=== PATIENT | female | born 1995 | race Caucasian/White ===

== ENCOUNTER 2023-06-22 13:27 | Outpatient (CLI) | payer BC, OTHER, SELFPAY ==
[2023-06-22 14:28] LABS: Beta HCG Quantitative 53.22 mIU/ML
== END 2023-06-22 13:28 | disposition home or self-care (01) ==
PROVIDERS: PCP Obstetrics & Gynecology; Visit Provider Obstetrics & Gynecology
DX: N91.2 Amenorrhea, unspecified (principal)
CPT/HCPCS: 36415; 84702

== ENCOUNTER 2023-06-24 11:27 | Outpatient (CLI) | payer BC, OTHER, SELFPAY ==
[2023-06-24 12:49] LABS: Beta HCG Quantitative 145.85 mIU/ML
== END 2023-06-24 11:28 | disposition home or self-care (01) ==
PROVIDERS: PCP Obstetrics & Gynecology; Visit Provider Obstetrics & Gynecology
DX: N91.2 Amenorrhea, unspecified (principal)
CPT/HCPCS: 36415; 84702

== ENCOUNTER → 2023-07-02 12:50 | Outpatient (CLI) | payer OTHER, SELFPAY ==
--- NOTE | ~2023-07-02 | US_ITS ---
EXAMINATION: US OB <=14 wk fetus w TV DATE: 07/02/2023 13:33 INDICATION: Left lower quadrant abdominal pain during first trimester TECHNIQUE: Real-time pelvic ultrasound utilizing both a transvaginal and transabdominal probe was pe rformed. The interpreting radiologist was not present for the study. COMPARISON: None. FINDINGS: The uterus measures 8.7 x 4.5 x 6.1 cm. There is an intrauterine gestational sac with double decidua sign but no yolk sac or pole yet apparent. The mean sac diameter measures 8 mm, still too smal l for assessment for gestational age. 3 mm nabothian cyst at the cervix. The right ovary measures 3.5 x 2.1 x 2.4 cm. With 1.2 cm anechoic cyst/follicle. The left ovary measu res 3.7 x 1.9 x 2.0 cm. There is no free fluid in the pelvis. IMPRESSION: 1. Single intrauterine gestational sac with mean sac diameter of 8 mm which is too small for assessme nt for gestational age. Reviewed, dictated and finalized at location B. IMPRESSION: 1. Single intrauterine gestational sac with mean sac diameter of 8 mm which is too small for assessment for gestational age.
== END ==
PROVIDERS: PCP Obstetrics & Gynecology; Visit Provider Obstetrics & Gynecology
DX: O26.899 Other specified pregnancy related conditions, unspecified trimester (principal); R10.32 Left lower quadrant pain; Z3A.00 Weeks of gestation of pregnancy not specified
CPT/HCPCS: 76801; 76817

== ENCOUNTER 2023-07-15 15:27 | Outpatient (CLI) | payer OTHER, SELFPAY ==
--- NOTE | ~2023-07-15 | US_ITS ---
US renal BI 07/15/2023 16:04 Procedure: Realtime transabdominal ultrasound of the kidneys and bladder. Indication: Back pain.. Comparison: No prior studies for comparison. Findings: Renal echotexture is normal bilaterally without hydronephrosis, contour deforming mass or r enal calculus. The right kidney measures 11.6 cm and left kidney measures 11.3 cm. Bladder within no rmal limits, although not well distended. In the adjacent liver parenchyma there is an oval hypoechoi c mass with internal vascularity measuring 1.4 cm. Impression: 1: Unremarkable renal ultrasound. No stones, masses or hydronephrosis. 2: Oval 1.4 cm liver mass with internal vascularity, most likely benign. Recommend follow-up ultraso und in 3-6 months to assess stability. Reviewed, dictated and finalized at [facility]. Impression: 1: Unremarkable renal ultrasound. No stones, masses or hydronephrosis. 2: Oval 1.4 cm liver mass with internal vascularity, most likely benign. Recom mend follow-up ultrasound in 3-6 months to assess stability.
== END 2023-07-15 15:28 | disposition home or self-care (01) ==
PROVIDERS: Visit Provider Obstetrics & Gynecology
DX: M54.9 Dorsalgia, unspecified (principal); K76.89 Other specified diseases of liver
CPT/HCPCS: 76775

== ENCOUNTER 2024-02-21 13:25 | Outpatient (CLI) | payer OTHER, SELFPAY ==
[2024-02-21 13:53] LABS: Basophils Percent Auto 0.3 % (0.2-1.2); Eosinophils Absolute Auto 0.1 K/mm3 (0-0.3); Eosinophils Percent Auto 0.7 % (0-4.4); Hemoglobin 12.6 g/dL (12.0-15.0); Immature Granulocyte Absolute 0.11 K/mm3 (0.00-0.031); Immature Granulocyte Percent A 0.9 % (0-0.5); Lymphocytes Absolute Auto 1.96 K/mm3 (0.9-3.2); Lymphocytes Percent Auto 16.9 % (18.3-44.2); Mean Corpuscular HGB Conc 33.2 g/dl (32-36); Mean Corpuscular Hemoglobin 29.5 pg (26-34); Mean Platelet Volume 10.8 fl (7.4-10.4); Monocytes Absolute Auto 0.5 K/mm3 (0.1-0.6); Monocytes Percent Auto 4.6 % (2.6-8.5); Neutrophils Absolute Auto 8.9 K/mm3 (1.3-6.7); Neutrophils Percent Auto 76.6 % (45.5-73.1); Platelet Count Result 269 k/mm3 (150-375); Red Blood Count 4.27 M/mm3 (4.2-5.4); Red Cell Distribution Width 14.4 % (11.5-14.5); White Blood Count 11.6 K/mm3 (4.5-10.0)
[2024-02-21 15:32] LABS: Rapid Plasma Reagin Non-Reactive (NonReactive)
== END 2024-02-21 15:00 | disposition home or self-care (01) ==
LOC: ANHOBOP 13:31 → ANHLDR 13:35
PROVIDERS: Visit Provider Obstetrics & Gynecology
DX: Z01.818 Encounter for other preprocedural examination (principal)
CPT/HCPCS: 36415; 85025; 86592; 86850; 86900; 86901; 99199

== ENCOUNTER 2024-02-22 08:37 | Inpatient (IN) | payer OTHER, SELFPAY ==
--- NOTE | 2024-02-21 14:23 | PM.IMHP ---
H&P: HPI History of Present Illness Date/Time: 02/21/24 14:23 28-year-old 1 female presents for primary delivery due to breech presentation. Does also have a history of pelvic floor dysfunction for which she has seen physical therapy and had good results, and had originally opted for primary delivery regardless of presentation, now the baby is breech will need for that reason as well. records are on the chart and no significant issues or concerns throughout the . Chief Complaint: Review of Systems Review of Systems: All systems reviewed & are unremarkable except as noted in HPI and below PMFSH Past Medical History Medical History Anemia Diarrhea Family history of autoimmune disorder Rectal urgency Surgical History Surgical History [place] teeth removed Family History Family History Mother Rheumatoid arthritis Breast cancer, Onset Age: 50 Grandparent Carcinoma of colon maternal grandmother Diabetes mellitus maternal grandmother Social History Social History Smoking status: Never smoker Alcohol intake: former Drinks per week: 1 Substance use: never Substance use type: marijuana Last use: 12/2022 Lack of Transportation: No Lack of Food: Sometimes True Current Housing: I Have Housing Concerned About Future Housing: No Difficulty Paying Gas/Electric Bills: No Difficulty Paying for Meds: No Currently Unemployed: No Education: Bachelor's Degree Difficulty w/ Childcare or Family Care: No Living arrangements: other Additional living arrangements comments: Occupation/Education: occupation 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 Gender identity (if verbalized by the patient): Female Sexual Orientation (if Verbalized by the Patient): Straight or Heterosexual Spiritual care concerns: No Meds Home Medications and Allergies Home Medications Medication Instructions Recorded Confirmed Type vitamins no.106-iron 27.5 1 cap PO DAILY 07/22/23 02/21/24 History mg-folate no.6 1 mg-dha capsule aspirin 81 mg tablet,delayed 81 mg PO DAILY 12/27/23 02/21/24 History release (Adult Low Dose Aspirin) Allergies Allergy/AdvReac Type Severity Reaction Status Date / Time Sulfa (Sulfonamide Allergy Mild Rash Verified 02/21/24 13:58 Antibiotics) Penicillins Allergy Hives Verified 02/21/24 13:58 Exam Const: General: cooperative, healthy appearing and comfortable Resp: Effort & Inspection: normal respiratory effort Auscultation: clear to auscultation bilaterally Cardio: Rate: regular rate Rhythm: regular rhythm GI: Inspection: normal to inspection Auscultation: normal bowel sounds : Bimanual exam- vagina & uterus: enlarged ( 39cm. heart tone 140. Breech presentation) Assessment and Plan Assessment and plan (1) 39 weeks gestation of : Code(s): Z3A.39 - 39 weeks gestation of Status: Acute (2) Breech presentation: Code(s): O32.1XX0 - Maternal care for breech presentation, not applicable or unspecified Status: Acute Plan proceed with primary delivery
[2024-02-22] VITALS (37 sets, daily range): BP systolic 92–123; BP diastolic 41–94; PULSE 59–88; RESP 15–24; TEMP 36.2–37.9; O2SAT 95–100; BMI 25.7
[2024-02-22] MEDS: ACETAMINOPHEN 500 MG TABLET 1000 MG PO (08:56)
[2024-02-22] MEDS: LACTATED RINGERS 1,000 ML 125 ML IV CONT ×2 (09:00→09:51)
--- NOTE | 2024-02-22 09:26 | LDADM ---
This patient, Yaneli Pal, was admitted to Labor/Delivery/Recovery 119 on 02/22/24 at 08:37. Plans for labor, pain management and were discussed with patient. Patient/family oriented to hospital policies and general routines including ID bracelet, bed and alarms, visiting hours, pain management, procedures, bathroom and other care routines, personal items, smoking policy, room service/diet and guest tray routines, infant security routines, and visiting hours. Patient/Family are encouraged to report perceived risks to care and to ask questions if they do not understand what they are told or what they should do. See OBIX for further documentation.
[2024-02-22] MEDS: FAMOTIDINE 20 MG/2 ML VIAL IV PUSH (09:51)
[2024-02-22] MEDS: ONDANSETRON INJ 4 MG/2 ML VIAL IV PUSH ×2 (09:51→11:25)
--- NOTE | 2024-02-22 10:06 | WPDANESEPP ---
Anes - Eval Pre Procedure Procedure: Operation Date: 02/22/24 10:30 Proposed Procedures p Section - Brenden Douglas MD Date/Time: 02/22/24 10:06 Pre Op Diagnosis: Pelvic Floor Dysfunction/PreAdmit Patient Data Age: 28 Gender: F Height: 1.65 m Weight: 70 kg Last Vital Signs Temp 36.9 C 02/22/24 08:56 Pulse 77 02/22/24 10:00 BP 123/83 02/22/24 10:00 O2 Del Method Room Air 02/22/24 09:24 Allergies Allergy/AdvReac Type Severity Reaction Status Date / Time Sulfa (Sulfonamide Allergy Mild Rash Verified 02/21/24 13:58 Antibiotics) Penicillins Allergy Hives Verified 02/21/24 13:58 Home Medications Medication Instructions Recorded Confirmed Type vitamins no.106-iron 27.5 1 cap PO DAILY 07/22/23 02/21/24 History mg-folate no.6 1 mg-dha capsule aspirin 81 mg tablet,delayed 81 mg PO DAILY 12/27/23 02/21/24 History release (Adult Low Dose Aspirin) Laboratory Tests 02/22/24 09:00 HIV 1&2 Ab/P24 Ag 4thGn Pending Patient hx anesthesia problems: none Family hx anesthesia problems: none Results Review: All pre-operative results and documents have been reviewed as part of the pre-operative evaluation. [facility] Past Medical History Medical History Anemia Diarrhea Family history of autoimmune disorder Rectal urgency Surgical History Surgical History [place] teeth removed Family History Family History Mother Rheumatoid arthritis Breast cancer, Onset Age: 50 Grandparent Carcinoma of colon maternal grandmother Diabetes mellitus maternal grandmother Social History Social History Smoking status: Never smoker Alcohol intake: former Drinks per week: 1 Substance use: never Substance use type: marijuana Last use: 12/2022 Do You Feel Safe in your Home?: Yes Lack of Transportation: No Lack of Food: Never True Current Housing: I Have Housing Concerned About Future Housing: No Difficulty Paying Gas/Electric Bills: No Difficulty Paying for Meds: No Currently Unemployed: No Education: Don't Know Difficulty w/ Childcare or Family Care: No Living arrangements: other Additional living arrangements comments: Occupation/Education: occupation 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
[2024-02-22 10:26] LABS: HIV 1/2 Ab P24 Ag Result Negative (Negative)
--- NOTE | 2024-02-22 10:29 | WPDHPUPDATE1 ---
History and Physical Update Update Date/Time: 02/22/24 10:29 History and Physical has been reviewed, including an updated exam of the patient. There are NO changes in the patient's condition. Risks, benefits, and alternatives have been discussed and questions answered. Patient agrees to proceed with procedure.
--- NOTE | 2024-02-22 10:36 | WPDANESEPPF ---
Anes - Initial Pre Proc Eval Procedure: Operation Date: 02/22/24 10:30 Proposed Procedures p Section - Brenden Douglas MD Date/Time: 02/22/24 10:36 Surgeon: Brenden Douglas MD Pre Op Diagnosis: Pelvic Floor Dysfunction/PreAdmit Patient Data Age: 28 Gender: F Height: 1.65 m Weight: 70 kg Last Vital Signs Temp 36.9 C 02/22/24 08:56 Pulse 86 02/22/24 10:30 BP 113/77 02/22/24 10:30 O2 Del Method Room Air 02/22/24 09:24 Allergies Allergy/AdvReac Type Severity Reaction Status Date / Time Sulfa (Sulfonamide Allergy Mild Rash Verified 02/21/24 13:58 Antibiotics) Penicillins Allergy Hives Verified 02/21/24 13:58 Home Medications Medication Instructions Recorded Confirmed Type vitamins no.106-iron 27.5 1 cap PO DAILY 07/22/23 02/21/24 History mg-folate no.6 1 mg-dha capsule aspirin 81 mg tablet,delayed 81 mg PO DAILY 12/27/23 02/21/24 History release (Adult Low Dose Aspirin) Laboratory Tests 02/22/24 09:00 HIV 1&2 Ab/P24 Ag 4thGn Negative (Negative) Patient hx anesthesia problems: none Family hx anesthesia problems: none Results Review: All pre-operative results and documents have been reviewed as part of the pre-operative evaluation. [facility] Past Medical History Medical History Anemia Diarrhea Family history of autoimmune disorder Rectal urgency Surgical History Surgical History [place] teeth removed Family History Family History Mother Rheumatoid arthritis Breast cancer, Onset Age: 50 Grandparent Carcinoma of colon maternal grandmother Diabetes mellitus maternal grandmother Social History Social History Smoking status: Never smoker Alcohol intake: former Drinks per week: 1 Substance use: never Substance use type: marijuana Last use: 12/2022 Do You Feel Safe in your Home?: Yes Lack of Transportation: No Lack of Food: Never True Current Housing: I Have Housing Concerned About Future Housing: No Difficulty Paying Gas/Electric Bills: No Difficulty Paying for Meds: No Currently Unemployed: No Education: Don't Know Difficulty w/ Childcare or Family Care: No Living arrangements: other Additional living arrangements comments: Occupation/Education: occupation 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 Gender identity (if verbalized by the patient): Female Sexual Orientation (if Verbalized by the Patient): Straight or Heterosexual Spiritual care concerns: No Anes - Eval Final PreProcedure Day of Procedure 02/22/24 10:36 Patient weight: normal Heart: regular rate and rhythm Lungs: clear to auscultation Airway: Mallampati scale class II Neurological: alert and oriented Last oral intake: >/= 8 hours ASA classification: II Emergent: no Anesthetic plan: proceed Anesthesia type and monitoring: regional spinal and standard monitoring Results Review: All pre-operative results and documents have been reviewed as part of the pre-operative evaluation. Informed Consent: The patient's anesthetic plan and its attendant risks and benefits were discussed with the patient/family/POA. Questions were solicited and answers provided to the satisfaction of the patient/family/POA.
[2024-02-22] MEDS: ceFAZolin 2 GM/D5W 50 ML 2 GM/50 ML BAG IVPB (10:38)
[2024-02-22] MEDS: KETOROLAC 30 MG/ML VIAL (*BKC) IV PUSH (11:25)
--- NOTE | 2024-02-22 11:31 | P.PCNOB_ITS ---
OB - Delivery Note Procedure Delivery date: 02/22/24 Pre-op diagnosis: Breech Presentation Post-op Diagnosis: Same Procedure Performed: Primary Primary branch: low cervical, transverse Surgeon: Brenden Douglas MD Anesthesia type: Spinal Description of Procedure/Findings: Patient prepped draped in usual manner for this procedure. Pfannenstiel incision was made which was then carried to the fascia and extended the length of the skin incision. Superiorly and inferiorly then was dissected away from the rectus muscles and the peritoneum was readily entered. Bladder flap was developed and uterus was scored with clear fluid noted. Lower segment was extended bilaterally. Breech was then delivered without difficulty up to the shoulders, both arms delivered without difficulty and the head as well. Suction nasal oropharynx, cord was clamped and cut, baby was passed off the operative field. Placenta was then expressed with membranes and clots removed as well. Uterine incision approximated using 0 Monocryl in a running interlocking manner with good approximation and hemostasis noted. Uterus was well contracted at this point and returned to the abdomen. Fascia was approximated using 0 Vicryl from left angle midline in from the right angle to midline with good approximation noted. Subcutaneous tissue approximated using 0 plain suture and love were then used to approximate the skin edges. Patient was then sent to recovery room in stable condition. Estimated Blood Loss: 970 Drains: Yes (Jarrell) Packing: No Pathology: None sent Complications: No immediate complications Condition: Stable Disposition: PACU [place] Baby Weeks of gestation at delivery: 39 Infant gender: Female Weight (pounds): 7 Weight (ounces): 8 presentation: breech Placenta delivery description: Expressed Cord Vessel Description: 3 Vessels score one minute: 8 score five minutes: 8 AMG Delivery Billing Delivery Delivery: Delivery Charge
[2024-02-22] MEDS: MORPHINE SULFATE INJ (*CRX) 10 MG/ML AMP 3 MG IV PUSH ×2 (13:00→13:48)
[2024-02-22] MEDS: OXYTOCIN 30 UNITS/NS 500 ML 30 UNITS/500 ML BAG 125 UNITS IV CONT (13:01)
--- NOTE | 2024-02-22 13:52 | OBPPTRN ---
Patient transferred to post room #290 via stretcher. Support person present. Oriented to unit, room, information board, rooming in, admission packet and security measures. Patient verbalizes understanding.
[2024-02-22] MEDS: ACETAMINOPHEN 325 MG TABLET 650 MG PO ×2 (14:51→20:44)
--- NOTE | 2024-02-22 15:58 | PC.NURSE ---
[id number] Introductions were made, then consulted with patient to assess needs related to . Mother led the conversation with her?plans to feed?her infant and the?experience so far. Encouraged understanding of the benefits of skin to skin (demonstrating unwrapping and placing upright on her chest), stimulating with massage touch, changing positions to encourage wakefulness, how to watch for early feeding cues, responsive feeding, feeding on demand (aiming for 8-12 times in 24 hours, about every 2-3 hours), milk production, hand expression, building/maintaining a milk supply, duration of feeding, signs of adequate intake/output and how to record on the feeding sheet. Mother works well with her infant with encouragement and education. Mother is able to express dripping colostrum from each breast. She finger feeds colostrum to her infant to encourage . is just at 4 hours old. Discussed typical behavior the first 24 hours, how to protect her milk supply with hand expression, and give drops of colostrum to her infant. Mother is able to express copious drops of first milk. Infant is sleepy and reluctant not showing signs of attempting to latch at this time. Reviewed baby-led latching with mother in a laid-back position with [id number] and demonstrated how to encourage . has had two voids since and mother states breastfed immediately and well after . [id number] 1555 Purposefully rounded to assess for feeding cues. Rare feeding cues are visualized with stimulation from massage touch, position and diaper change. Reviewed positioning and ear, shoulder, hip alignment, supporting the breast to facilitate a deep latch, asymmetrical latch (off-center), leading with the chin with a big, open, wide gape and body close to mother. We practiced mother led latching with cradle and cross cradle. is sleepy and makes no effort to breastfeed at this time. Reviewed comfort measures of healing with a warm, wet washcloth to rinse breast, then leave open to air-dry, good handwashing when or touching the breast/nipples to prevent infection. Mother voiced understanding of skin to skin, stimulating with massage touch, responsive feedings, hand expressed colostrum, talking to infant to encourage if it has been 2 -2.5 hours since the start of the last , to call if does not latch, or if there is discomfort with . We reviewed typical behavior less than 6 hours old and protecting the milk supply. If mother desires to supplement infant we can express milk onto a spoon, in a cup and another option is to syringe feed infant colostrum since she has a good first supply. Resources used for education were facilitated with the visual educational handouts/ tool/mom and baby guide. Inpatient/outpatient resources provided with name written on the communication board. Parents voiced understanding of information, demonstrated learning, RN LC will round tomorrow to assess and patient was encouraged to call for assistance as needed.
[2024-02-22] MEDS: SIMETHICONE 80 MG TAB.CHEW PO (17:34)
[2024-02-22] MEDS: DOCUSATE SODIUM 100 MG CAPSULE PO (17:34)
[2024-02-22] MEDS: DEXTROSE 5%/0.45% SOD CHL 1,000 ML 125 ML IV CONT (17:34)
[2024-02-22] MEDS: KETOROLAC 15 MG/ML VIAL (*BKC) IV PUSH (17:34)
--- NOTE | 2024-02-22 18:23 | PC.NURSE ---
1822: RN could not find temporary patient in the [facility] to waste Morphine from recovery. RN called pharmacy to ask how to waste the Morphine, Andre in pharmacy was not sure how. RN wasted 0.3 mg of Morphine due to two doses being given from the same vial, verified by RN. Raymond Sheriff.
[2024-02-23] MEDS: KETOROLAC 15 MG/ML VIAL (*BKC) IV PUSH ×2 (00:42→07:51)
[2024-02-23] MEDS: HYDROcodone/acetaminophen (*CRX) 5-325 MG TABLET 1 TAB PO ×3 (04:56→20:18)
[2024-02-23 05:11] LABS: Basophils Absolute Auto 0.1 K/mm3 (0.0-0.1); Basophils Percent Auto 0.3 % (0.2-1.2); Eosinophils Absolute Auto 0.2 K/mm3 (0-0.3); Eosinophils Percent Auto 1.3 % (0-4.4); Hematocrit 31.4 % (37.0-47.0); Hemoglobin 10.1 g/dL (12.0-15.0); Immature Granulocyte Percent A 0.7 % (0-0.5); Lymphocytes Absolute Auto 2.58 K/mm3 (0.9-3.2); Mean Corpuscular HGB Conc 32.2 g/dl (32-36); Mean Corpuscular Hemoglobin 29.4 pg (26-34); Mean Corpuscular Volume 91.5 fl (80-100); Monocytes Percent Auto 6.7 % (2.6-8.5); Neutrophils Absolute Auto 10.5 K/mm3 (1.3-6.7); Platelet Count Result 215 k/mm3 (150-375); Red Blood Count 3.43 M/mm3 (4.2-5.4); Red Cell Distribution Width 14.2 % (11.5-14.5); White Blood Count 14.3 K/mm3 (4.5-10.0)
[2024-02-23 05:55] VITALS: BP 94/62; PULSE 80; RESP 18; TEMP 37.1; O2SAT 96
[2024-02-23 07:36] VITALS: BP 98/54; PULSE 79; RESP 16; TEMP 36; O2SAT 99
--- NOTE | 2024-02-23 07:37 | WPDANLDPN2 ---
Anes-Prog Note L&D Date/Time: 02/23/24 07:37 Comfortable throughout: section Neuraxial method: spinal Epidural/Spinal procedure site: clean & non-tender Neuro status: Neuro function grossly intact. Cardiovascular status: normal Respiratory status: normal Airway patency: baseline Mental status: baseline Post-Op hydration status: normal Vital Signs: Last Vital Signs Temp 37.1 C 02/23/24 05:55 Pulse 80 02/23/24 05:55 Resp 18 02/23/24 05:55 BP 94/62 L 02/23/24 05:55 Pulse Ox 96 02/23/24 05:55 O2 Del Method Room Air 02/22/24 19:30 Pain score (VAS): 4/10 I/O: Intake & Output 02/22/24 02/22/24 02/23/24 15:59 23:59 07:59 Intake Total 1091.7 700 300 Output Total 6712 504 9279 Balance -353.3 250 -1450 Post-procedural complaints: pruritis moderate, treatment effective Patient feedback: Patient satisfied with anesthetic care.
--- NOTE | 2024-02-23 07:38 | WPDANLDNPN2 ---
Anes-Prog Note L&D-Neuraxial Date/Time: 02/23/24 07:38 Neuraxial medications: intrathecal PF morphine Opiod-related complaints: pruritis moderate, treatment effective Patient feedback: Patient satisfied with post-operative pain management.
[2024-02-23] MEDS: ACETAMINOPHEN 325 MG TABLET 650 MG PO (07:49)
[2024-02-23] MEDS: MULTIVIT/MIN/PREN/FOL AC/IRON TABLET 1 TAB PO (07:51)
[2024-02-23] MEDS: LORATADINE 10 MG TABLET PO (07:52)
[2024-02-23] MEDS: DOCUSATE SODIUM 100 MG CAPSULE PO ×2 (07:52→20:18)
--- NOTE | 2024-02-23 09:40 | PC.NURSE ---
On 02/23/24, the student, Candace Peñaloza, provided care and completed [facility] documentation on this patient. I have reviewed the student's documentation and agree with the findings.
--- NOTE | 2024-02-23 10:36 | PM.OBPNVD ---
OB - PN: Subj Subjective Date/time seen: 02/23/24 10:36 S: Pain well controlled diet and ambulation without difficulty. Voiding without issue. O: VSS afebrile Abdomen: Positive bowel sounds soft nondistended. Incision covered. Labs: Reviewed A: Postoperative day 1... Good progress from a surgical and obstetrical standpoint. P: Continue routine increase in postoperative care. Will schedule for discharge home tomorrow with staple removal next Wednesday in the office. If she were baby needs to stay will hold discharge until able to be discharged with baby. OB - PN: Obj Data Labs 02/23/24 04:50 Labs: Laboratory Results - last 24 hr 02/23/24 04:50 WBC 14.3 H RBC 3.43 L Hgb 10.1 L Hct 31.4 L MCV 91.5 MCH 29.4 MCHC 32.2 RDW 14.2 Plt Count 215 MPV 11.0 H Immature Gran % (Auto) 0.7 H Neut % (Auto) 73.0 Lymph % (Auto) 18.0 L [place] % (Auto) 6.7 Eos % (Auto) 1.3 Baso % (Auto) 0.3 Lymph # (Auto) 2.58 [place] # (Auto) 1.0 H Eos # (Auto) 0.2 Baso # (Auto) 0.1 Abs Immat Gran (auto) 0.10 H Absolute Neuts (auto) 10.5 H Absolute Nucleated RBC 0.000 Nucleated RBC % 0.0 OB - PN A/P Time Spent With Patient Time: Total time spent is greater than 50% in coordination of care (as documented) at patient's floor/unit and/or counseling patient:
--- NOTE | 2024-02-23 10:38 | P.DS_ITS ---
DS: Admitting Diagnosis Discharge Date 02/24/2024 Admitting Diagnosis DS: Discharge Diagnosis Discharge Diagnosis (1) , delivered: Code(s): O80 - Encounter for full-term uncomplicated delivery Status: Acute OB - DS: Summary OB Procedures : None OB Procedures Intrapartum: OB Procedures: : None Peripartum Data Procedures: Procedures Operation Date: 02/22/24 10:30 Actual Procedure Side Surgeon p Section Not Applicable Brenden Douglas MD Time Spent with Patient Time attestation: Total time spent providing and/or coordinating discharge services: DS: Data Data Completed and Pending Labs on day of discharge: Labs from last 24 hours 02/23/24 04:50 WBC 14.3 H RBC 3.43 L Hgb 10.1 L Hct 31.4 L MCV 91.5 MCH 29.4 MCHC 32.2 RDW 14.2 Plt Count 215 MPV 11.0 H Immature Gran % (Auto) 0.7 H Neut % (Auto) 73.0 Lymph % (Auto) 18.0 L [place] % (Auto) 6.7 Eos % (Auto) 1.3 Baso % (Auto) 0.3 Lymph # (Auto) 2.58 [place] # (Auto) 1.0 H Eos # (Auto) 0.2 Baso # (Auto) 0.1 Abs Immat Gran (auto) 0.10 H Absolute Neuts (auto) 10.5 H Absolute Nucleated RBC 0.000 Nucleated RBC % 0.0 Discharge Plan Discharge Discharging Clinician: Brenden Douglas Patient Disposition: Home, Self-Care Activity: may shower, no straining, no driving and pelvic rest Diet: as tolerated Patient Instructions: Antibiotic Form Stand Alone Forms: General Discharge Information Follow-up/Referrals: Brenden Douglas MD [Physician] - 3 Weeks Discharge Medications: New hydrocodone-acetaminophen 5-325 mg Tablet 1 tablet PO Q3H Qty: 20 0RF ibuprofen 600 mg Tablet 600 mg PO Q6H Qty: 30 0RF Continued PNV no.386-bjle-jonzzb no6-dha 27.5 mg iron- 1 mg capsule 1 cap PO DAILY Discontinued aspirin [Adult Low Dose Aspirin] 81 mg tablet,delayed release (DR/EC) 81 mg PO DAILY Date of admission: 02/22/24 08:37 Primary Care Provider: UNKNOWN,DOCTOR Admitting Provider: Brenden Douglas Attending physician on admission: Brenden Douglas Condition: Stable
[2024-02-23] MEDS: SIMETHICONE 80 MG TAB.CHEW PO ×3 (12:59→20:18)
[2024-02-23] MEDS: IBUPROFEN 600 MG TABLET PO (20:18)
[2024-02-23 20:20] VITALS: BP 100/62; PULSE 77; RESP 16; TEMP 37; O2SAT 98
[2024-02-24] MEDS: HYDROcodone/acetaminophen (*CRX) 10-325 MG TABLET 1 TAB PO ×2 (01:24→07:00)
[2024-02-24] MEDS: IBUPROFEN 600 MG TABLET PO ×3 (07:00→21:40)
[2024-02-24 07:20] VITALS: BP 113/74; PULSE 64; RESP 16; TEMP 36.8; O2SAT 97
[2024-02-24] MEDS: MULTIVIT/MIN/PREN/FOL AC/IRON TABLET 1 TAB PO (08:43)
[2024-02-24] MEDS: LORATADINE 10 MG TABLET PO (08:43)
[2024-02-24] MEDS: DOCUSATE SODIUM 100 MG CAPSULE PO ×2 (08:43→17:34)
--- NOTE | 2024-02-24 09:19 | PC.NURSE ---
[id number] Purposefully rounded to assess for pumping needs as it has been reported to RN that mother is pumping and bottle feeding only. Upon entering the room mother has infants body facing her body in a unconventional position. Mother states she is without pain. Mother shared she is supplementing with bottles as well. Father shared that infant drank the whole bottle. Discussed protecting the milk supply with stimulating with or pumping. Mother denied pain with pumping, states she tried it once and doesn't like it. She watched a couple of videos and thinks she has the hand of it . RN LC offered to assess the latch and patient declined stating she was confident that is going well. Reported to the Primary RN.
[2024-02-24] MEDS: HYDROcodone/acetaminophen (*CRX) 5-325 MG TABLET 1 TAB PO ×3 (12:02→21:40)
[2024-02-24 12:23] VITALS: BP 103/61; PULSE 89; RESP 18; TEMP 36.9; O2SAT 98
[2024-02-24] MEDS: SIMETHICONE 80 MG TAB.CHEW PO (15:57)
[2024-02-24 21:49] VITALS: BP 99/55; PULSE 72; RESP 18; TEMP 36.6; O2SAT 98
[2024-02-25] MEDS: MULTIVIT/MIN/PREN/FOL AC/IRON TABLET 1 TAB PO (07:02)
[2024-02-25] MEDS: HYDROcodone/acetaminophen (*CRX) 10-325 MG TABLET 1 TAB PO (07:02)
[2024-02-25] MEDS: DOCUSATE SODIUM 100 MG CAPSULE PO (07:02)
[2024-02-25] MEDS: SIMETHICONE 80 MG TAB.CHEW PO (07:02)
[2024-02-25] MEDS: IBUPROFEN 600 MG TABLET PO (07:02)
[2024-02-25] MEDS: LIDOCAINE 5% PATCH 1 PATCH TRANSDERM (07:03)
--- NOTE | 2024-02-25 08:00 | PC.NURSE ---
Patient to view the discharge video Mother & Baby Care, The First Two Weeks online. Patient was given the opportunity and encouraged to ask questions. Patient verbalized understanding of information shared and has been given the mother/baby guide for home reference.
[2024-02-25 08:25] VITALS: BP 115/61; PULSE 68; RESP 18; TEMP 36.8; O2SAT 98
--- NOTE | 2024-02-25 09:00 | PM.OBPNVD ---
OB - PN: Subj Subjective Date/time seen: 02/25/24 09:00 Patient comments: no complaints, pain well controlled, tolerating diet and flatus present [place] baby status: doing well OB - PN: Obj Data Labs 02/23/24 04:50 OB - PN A/P Assessment and Plan (1) , delivered: Code(s): O80 - Encounter for full-term uncomplicated delivery Status: Acute Assessment and Plan: POD3 s/p - doing well. Discharge home today. Time Spent With Patient Time: Total time spent is greater than 50% in coordination of care (as documented) at patient's floor/unit and/or counseling patient: Exam Const: General: comfortable and no acute distress Resp: Effort & Inspection: normal respiratory effort GI: Other: incision love intact clean dry Extrem: General: normal to inspection and no calf tenderness bilaterally Psych: Mental Status: mental status grossly normal Affect: normal affect
[2024-02-28 09:55] VITALS: BP 103/70; PULSE 73; RESP 18; TEMP 36.8; O2SAT 100
== END 2024-02-25 11:25 | disposition home or self-care (01) | DRG 788 ==
LOC: ANHLDR 08:39 → ANHOB2 13:55
PROVIDERS: Admitting Provider Obstetrics & Gynecology; Visit Provider Obstetrics & Gynecology
PROC: 10D00Z1 Extraction of Products of Conception, Low, Open Approach (ICD-10-PCS; CPT 59514; principal; 2024-02-22 10:30)
DX: O32.1XX0 Maternal care for breech presentation, not applicable or unspecified (principal); Z3A.39 39 weeks gestation of pregnancy; Z37.0 Single live birth; M99.05 Segmental and somatic dysfunction of pelvic region
CPT/HCPCS: 36415; 85025; 86703; A9270; G0432; J0690; J1885; J2270; J2371; J2405; J2590; J7120